=== PATIENT | male | born 1955 | race Caucasian/White ===

== ENCOUNTER 2017-03-05 20:32 | Emergency (ER) | payer MEDICAID ==
[2017-03-05] MEDS ORDERED: OXYMETAZOLINE 30 ML NASAL SPRAY ONE (20:51)
[2017-03-05] MEDS ORDERED: SILVER NITRATE APPLICATOR 1 APPL TP ONE (20:51)
[2017-03-05] MEDS ORDERED: COCAINE HCL 4% 4 ML BTL TP ONE ×2 (20:58→22:32)
[2017-03-05] MEDS ORDERED: CEPHALEXIN 500 MG CAP PO ONE (21:41)
--- NOTE | 2017-03-05 22:16 | EDPHY ---
H & P Time Seen by Provider: 03/05/17 20:54 HPI/ROS: HPI Nosebleed. 61-year-old male by private vehicle. This patient is on Coumadin. He reports spontaneous bleeding from his left nasal canal since 7:00 p.m.. Not resolving. No history of trauma. Denies any other associated signs or symptoms. No other aggravating or alleviating factors. ROS: Constitutional: No fever, no chills. No weakness. Eyes: No discharge. No changes in vision. ENT: No sore throat. As above. Respiratory: No cough. No shortness of breath. Cardiac: No chest pain, no palpitations. Gastrointestinal: No abdominal pain, no vomiting, no diarrhea. Genitourinary: No hematuria. No dysuria or increased frequency with urination. Musculoskeletal: No back pain. No neck pain. No myalgias or arthralgias. Skin: No rashes. Neurological: No headache. No focal weakness or altered sensation. Past medical history: AL x5, CABG, stents, hernia, neck injury. On Coumadin. Social history: Here by himself. He has a daughter who is a family practice physician. No alcohol. No smoking. Physical Exam: General Appearance: Alert, anxious. This patient is responding to questions appropriately and in full sentences. This patient appears well-hydrated and well-nourished. Eyes: Pupils equal and round no pallor or injection. No lid edema, erythema or injection. ENT, Mouth: Mucous membranes are moist. Blood in the posterior pharynx. The pharyngeal tissues are unremarkable. No edema or swelling. No asymmetry suggestive of abscess. No erythema or exudates. Brisk bleeding from the left nasal canal. Please see procedure note below for details. Respiratory: There are no retractions, lungs are clear to auscultation with good air movement bilaterally. Cardiovascular: Regular rate and rhythm. No murmur. Neurological: Motor sensory function is grossly intact. Cranial nerves are normal. Gait is normal. Skin: Warm and dry, no rashes. Musculoskeletal: Neck is supple and nontender. Extremities are symmetrical. All joints range without pain or impingement. Psychiatric: No agitation. No depression. Database: EKG: Imaging: Procedures: Procedure: Epistaxis control. After verbal consent was obtained, the patient was anesthetized with pledgets soaked in 4% cocaine. The anterior epistaxis was identified. The patient was treated with chemical cautery which failed, a 4.5 cm anterior nasal balloon was placed. Excellent hemostasis was achieved. Following the procedure the patient was re-examined and the bleeding was well controlled. The patient tolerated the procedure well. The procedure was performed by myself. Emergency department course: Vital signs reviewed. Procedure as above. Patient started on Keflex in the emergency department. I spoke with his daughter who is a family practice physician. Plan will be to have him follow up with ENT in 3 days for removal of the nasal balloon. Prescription for Keflex given to the patient. Return to emergency department precautions were reviewed with him. All of his questions were answered. He was discharged in good condition. Differential Diagnosis: The differential diagnosis on this patient includes but is not limited to anterior epistaxis. Posterior epistaxis, nasal foreign body, nasal trauma unlikely. This represents a partial list of diagnoses considered. These considerations are based on history, physical exam, past history, reassessment and diagnostic testing. Smoking Status: Never smoked Constitutional: Initial Vital Signs Temperature (C) 36.6 C 03/05/17 20:35 Heart Rate 70 03/05/17 20:35 Respiratory Rate 20 03/05/17 20:35 Blood Pressure 156/86 H 03/05/17 20:35 O2 Sat (%) 97 03/05/17 20:35 O2 Delivery Mode Room Air Allergies/Adverse Reactions: No Known Allergies Allergy (Verified 03/05/17 20:37) Home Medications: Medication Instructions Recorded Warfarin Sodium 11/08/14 Cephalexin [Keflex (*)] 500 mg PO Q6 5 Days cap 03/05/17 Medical Decision Making - Data Points Medications Given: Discontinued Medications Cephalexin HCl (Keflex) 500 mg PO EDNOW ONE PRN Reason: Protocol Stop: 03/05/17 21:42 Last Admin: 03/05/17 22:25 Dose: 500 mg Cocaine HCl (Cocaine Hcl) 1 mariam TP EDNOW ONE Stop: 03/05/17 22:33 Last Admin: 03/05/17 22:33 Dose: 1 mariam Oxymetazoline HCl (Afrin Nasal [place]) 2 sprays EACHNARE EDNOW ONE Stop: 03/05/17 22:33 Last Admin: 03/05/17 22:34 Dose: 2 spray Departure - Departure Disposition: Home, Routine, Self-Care Clinical Impression: Epistaxis, Left-sided nosebleed Condition: Good Instructions: Nosebleed (ED) Additional Instructions: Read and follow provided instructions. Follow-up with with Dr. Basil Taavres or 1 of his partners with the ENT service for re-evaluation. If the nasal balloon is bothering you significantly , you can see him or 1 of his partners tomorrow to have it removed and possibly have your bleeding site cauterized if it is still bleeding. Otherwise, the nasal balloon is to remain in place for 3 days and then removed. Take medication as prescribed. Return to the emergency department for return of bleeding, difficulty breathing or other serious concerns. Referrals: Basil Tavares MD [Medical Doctor] - As per Instructions Prescriptions: Cephalexin [Keflex (*)] 500 mg PO Q6 5 Days cap
[2017-03-05 22:31] VITALS: BP 113/75; PULSE 66; RESP 18; TEMP 98.1; O2SAT 94
[2017-03-05] MEDS ORDERED: OXYMETAZOLINE 30 ML NASAL SPRAY EACHNARE ONE (22:32)
== END 2017-03-05 22:44 | disposition home or self-care (01) ==
PROC: 2Y41X5Z Packing of Nasal Region using Packing Material (ICD-10-PCS; principal; 2017-03-05)
DX: R04.0 Epistaxis (principal); Z79.01 Long term (current) use of anticoagulants; Z95.1 Presence of aortocoronary bypass graft

== ENCOUNTER → 2018-01-20 | Outpatient (CLI) | payer MEDICAID | LOC: FIMAGING 07:17 | PROVIDERS: ATTEND Internal Medicine | DX: R06.09 Other forms of dyspnea (principal); I25.10 Atherosclerotic heart disease of native coronary artery without angina pectoris ==

== ENCOUNTER 2018-03-16 08:02 | Inpatient (IN) | payer MEDICAID ==
[2018-03-16] MEDS ORDERED: ASPIRIN 81 MG CHEWABLE TAB PO ONE (08:22)
[2018-03-16 08:36] LABS: PLATELET COUNT 187 10^3/uL (150-400)
--- NOTE | 2018-03-16 08:46 | EDPHY ---
H & P Stated Complaint: L sided CP this morning; +card disease; feels SOB Time Seen by Provider: 03/16/18 08:31 HPI/ROS: CHIEF COMPLAINT: Chest pain HISTORY OF PRESENT ILLNESS: 62-year-old male with CAD, status post CABG (2010) presents with chest pain. He awoke with a burning sensation in his chest at 0300. The burning sensation is moderate and associated with shortness of breath. Symptoms lasted 5 hr and have now resolved. He took aspirin and Plavix this morning. No alleviating or aggravating factors. Similar to prior anginal symptoms. No dizziness or diaphoresis. REVIEW OF SYSTEMS: complete 10 point ROS reviewed and is negative except for the noted elements in the HPI - Personal History Current Tetanus Diphtheria and Acellular Pertussis (TDAP): Yes - Medical/Surgical History Hx Asthma: No Hx Chronic Respiratory Disease: No Hx Diabetes: No Hx Cardiac Disease: Yes Hx Renal Disease: No Hx Cirrhosis: No Hx Alcoholism: No Hx HIV/AIDS: No Hx Splenectomy or Spleen Trauma: No Other PMH: PMH: hx ID x5, CABG and stents x4, hernia and neck injury - Social History Smoking Status: Never smoked - Physical Exam Exam: General Appearance: Alert, pleasant Eyes: Pupils equal and round, no conjunctival pallor or injection ENT, Mouth: Mucous membranes moist Neck: Normal inspection Respiratory: Lungs are clear to auscultation Cardiovascular: Regular rate and rhythm Gastrointestinal: Abdomen is soft and nontender Neurological: A&O, nonfocal exam Skin: Warm and dry, no rash Extremities: bilateral pedal edema, left greater than right Psychiatric: Mood and affect normal Constitutional: Initial Vital Signs Temperature (C) 36.5 C 03/16/18 08:05 Heart Rate 66 03/16/18 08:05 Respiratory Rate 18 03/16/18 08:05 Blood Pressure 155/66 H 03/16/18 08:05 O2 Sat (%) 97 03/16/18 08:05 O2 Delivery Mode Room Air Allergies/Adverse Reactions: No Known Allergies Allergy (Verified 03/16/18 08:02) Home Medications: Medication Instructions Recorded Albuterol [Proventil Inhaler HFA 1 - 2 puffs IH Q4H PRN 03/16/18 (*)] Aspirin [Aspirin 81mg (*)] 81 mg PO DAILY PRN 03/16/18 Atorvastatin Calcium [Lipitor 20 20 mg PO DAILY 03/16/18 mg (*)] Bisoprolol Fumarate [Zebeta (*)] 5 mg PO HS 03/16/18 Clopidogrel Bisulfate [Clopidogrel] 75 mg PO DAILY 03/16/18 Enalapril Maleate [Vasotec 10 MG 10 mg PO HS 03/16/18 (*)] Fluticasone/Salmeter 250/50Mcg 1 puffs IH BID 03/16/18 [Advair 250/50 (*)] Herbals/Supplements -Info Only 1 ea PO DAILY 03/16/18 Multivitamins [Multivitamin (*)] 1 each PO DAILY 03/16/18 Medical Decision Making - Diagnostics EKG Interpretation: EKG interpreted by me reveals normal sinus rhythm, rate 67, inferior Q-waves, ST segment elevation in lead V2. Interpretation: Abnormal EKG Imaging Results: Chest x-ray: NAD Imaging: I viewed and interpreted images myself ED Course/Re-evaluation: This patient with known coronary artery disease presents with typical chest pain. Stat EKG reveals no evidence of ischemia or dysrhythmia. Aspirin given. Initial troponin is 0. Patient asymptomatic throughout his emergency department stay. High risk for ACS. He will need admission for further cardiac evaluation. The hospitalist service was consulted for admission. Differential Diagnosis: Differential diagnosis includes though it is not limited to pneumonia, pneumothorax, pulmonary embolism, aortic dissection, pericarditis, acute coronary syndrome. - Data Points Laboratory Results: Laboratory Results 03/17/18 03:10 03/17/18 03:10 Medications Given: Acetaminophen (Tylenol) 650 mg PO QID PRN PRN Reason: Pain, Mild Able to Take PO Stop: 09/12/18 12:12 Last Admin: 03/16/18 21:04 Dose: 650 mg Albuterol (Proventil Inhaler) 1 - 2 puffs IH Q4H PRN PRN Reason: Shortness of Breath Stop: 09/12/18 10:56 Last Admin: 03/16/18 15:44 Dose: 2 puffs Bisoprolol Fumarate (Zebeta) 5 mg PO HS [facility] Stop: 09/12/18 20:59 Last Admin: 03/16/18 21:07 Dose: Not Given Clopidogrel Bisulfate (Plavix) 75 mg PO DAILY [facility] Stop: 09/13/18 08:59 Last Admin: 03/17/18 11:00 Dose: 75 mg Enalapril Maleate (Vasotec) 10 mg PO HS [facility] Stop: 09/12/18 20:59 Last Admin: 03/16/18 21:07 Dose: Not Given Multivitamins (Tab-A-Yudelka) 1 each PO DAILY [facility] Stop: 09/13/18 08:59 Last Admin: 03/17/18 11:00 Dose: 1 each Discontinued Medications Aspirin (Aspirin) 243 mg PO EDNOW ONE Stop: 03/16/18 08:23 Last Admin: 03/16/18 08:26 Dose: 243 mg Aspirin Buffered (Aspirin Ec) 325 mg PO ONCALL ONE Stop: 03/17/18 06:01 Last Admin: 03/17/18 14:07 Dose: Not Given Atorvastatin Calcium (Lipitor) 20 mg PO [facility] Stop: 09/12/18 20:59 Last Admin: 03/16/18 21:24 Dose: 20 mg Diazepam (Valium) 5 mg PO ONCALL ONE Stop: 03/17/18 06:01 Last Admin: 03/17/18 14:07 Dose: Not Given Diphenhydramine HCl (Benadryl) 25 mg PO ONCALL ONE Stop: 03/17/18 06:01 Last Admin: 03/17/18 14:07 Dose: Not Given Famotidine (Pepcid) 20 mg PO ONCALL ONE Stop: 03/17/18 06:01 Last Admin: 03/17/18 14:07 Dose: Not Given Sodium Chloride (Ns) 1,000 mls @ 150 mls/hr IV ONCALL ONE Stop: 03/17/18 12:39 Last Admin: 03/17/18 14:08 Dose: Not Given Nitroglycerin (Nitro-Bid 2%) 1 inch TP Q6HRS [facility] Stop: 09/12/18 12:29 Last Admin: 03/17/18 14:07 Dose: Not Given Point of Care Test Results: Chemistry 03/16/18 09:21 POC Troponin I 0.00 ng/mL ng/mL (0.00-0.08) Departure - Departure Disposition: [facility] Clinical Impression: Chest pain Qualifiers: Chest pain type: precordial pain Qualified Code(s): R07.2 - Precordial pain Condition: Fair
[2018-03-16] MEDS ORDERED: ASPIRIN 81 MG CHEWABLE TAB PO PRN (10:57)
--- NOTE | 2018-03-16 11:50 | GHP ---
DATE OF ADMISSION: 03/16/2018 CHIEF COMPLAINT: Chest pain. HISTORY OF PRESENT ILLNESS: This is a 62-year-old man with a history of a CABG as well as additional cardiac stents, CABG was in 2010, who awoke around 3:00 a.m. this morning with squeezing chest pain. It was associated with some shortness of breath. He took some water with lemon juice as well as hi s aspirin and Plavix early, which did not relieve the pain. The pain did resolve without any other r eal intervention after couple of hours. He called his daughter, and she recommended that he report t o the emergency department which he did. He normally exercises; however, on his walk yesterday, it w as longer than normal but he felt extremely fatigued afterwards. He see Dr. Nolasco in clinic and had a stress test about a month and a half ago which showed an old infarct but nothing new. His ejectio n fraction was 46%. He notes slight worsening lower extremity edema. PAST MEDICAL/SURGICAL HISTORY: 1. Coronary artery disease, status post CABG as well as stents. 2. Hernia repair. 3. Neck pain. MEDICATIONS: Please see medication reconciliation. ALLERGIES: No known drug allergies. SOCIAL HISTORY: Does not drink or smoke. FAMILY HISTORY: Reviewed and noncontributory. REVIEW OF SYSTEMS: A 10-point review of systems is conducted and is negative except per HPI. PHYSICAL EXAM: VITAL SIGNS: Blood pressure 137/77, heart rate 65, respiration rate 20, saturating a t 92% on room air. Temperature is 36.9. GENERAL: The patient is a very pleasant man who is resting comfortably. No acute distress. HEENT: Shows him to be normocephalic, atraumatic. CARDIOVASCULAR : Regular rate and rhythm. No murmurs, rubs, or gallops. He has trace to 1+ bilateral symmetric lo wer extremity edema. PULMONARY: Lungs clear to auscultation bilaterally. He is in no respiratory d istress. ABDOMEN: Soft, nontender, nondistended. SKIN: No rash. : No [place]. NEUROLOGIC: Chary ws him to be alert and oriented x3. He is moving all extremities. PSYCHIATRIC: Normal mood and aff ect. LABORATORY DATA: CBC is normal. D-dimer is 0.4. Basic metabolic panel is normal. BNP is 351. DATA: 1. Discussed with Dr. Thomas, who will plan on catheterization tomorrow. 2. ECG, which I personally viewed and interpreted, shows old anterior infarct. It is not significan tly changed from his prior. 3. Chest x-ray, which I personally reviewed and interpreted, shows clear lungs. He has sternotomy w ires. IMPRESSION AND PLAN: Chest pain in a patient who is status post coronary artery bypass grafting as w ell as multiple stents: He had a recent stress test, which did not show any significant changes from prior. We will plan to place him on telemetry, admit him to [facility], trend his troponins. I have di scussed with Dr. Thomas, who will plan on cardiac catheterization tomorrow morning. He will be n.p.o. after midnight. He has received aspirin. We will continue his other cardiac medications including aspirin, Plavix, bisoprolol and Lipitor. This is a high-risk diagnosis. Fortunately, he is hemodyna mically stable currently. /[id number]/MODL
[2018-03-16] MEDS ORDERED: TEMAZEPAM 15 MG CAP PO PRN (12:13)
[2018-03-16] MEDS ORDERED: ACETAMINOPHEN 325 MG TAB PO PRN (12:13)
[2018-03-16] MEDS ORDERED: NITROGLYCERIN 0.4 MG BTL SL PRN (12:13)
--- NOTE | 2018-03-16 12:13 | SOAPPROG ---
[facility] Progress Note Assessment/Plan: Assessment: Cardiology consultation performed and dictated. 62 y/o man with CAD s/p CABG x 4V and MV repair in 01/25, PAF, HTN, and hyperlipidemia who has had CP and dizziness for last month or two. Echo 02/06/18 showed LVEF 52%, moderate diastolic dysfunction, trivial AI, MV s/p surgical annular ring with mild-moderate MR, trivial TR and estimated PAS 36mmg. Lexiscan cardiolite 01/24/18 showed LVEF 46% with no ischemia. His ecg is consistent with old anterior IA with and possible LV aneurysm or could be new ischemia. His first troponin is negative. REC: 1)add Nitropaste 1" q6hrs as still some non-specific CP and dizziness 2)rest of meds without changes. 3)serial serum troponin q4hrs x 2 more 4)NPO after midnight for cardiac cath and coronary and bypass angiography tomorrow. R/B/A discussed with pt and he wishes to proceed. 03/16/18 12:08 Objective: Vital Signs Temp Pulse Resp BP Pulse Ox 36.9 C 65 20 137/77 H 92 03/16/18 10:50 03/16/18 10:50 03/16/18 10:50 03/16/18 10:50 03/16/18 10:50 ICD10 Worksheet Patient Problems: Problems Problem Status Onset Chest pain Acute
[2018-03-16] MEDS: NITROGLYCERIN 2% 1 GM PACKET TP SCH ×3 (13:43→23:30)
--- NOTE | 2018-03-16 13:51 | GCON ---
CARDIOLOGY CONSULT DATE OF CONSULTATION: 03/16/2018 REASON FOR CONSULTATION: Evaluate chest pain and dizziness in a gentleman with previous bypass surge ry. HISTORY OF PRESENT ILLNESS: I was asked by Dr. Nando Curiel to consult for the above reasons. T he patient is a 62-year-old gentleman with the following cardiac history. He had multiple coronary s tents and then eventually got a CABG x4 vessels and mitral valve repair in January of 2015. He has been having recurrent chest pain and dizziness for the last 6 weeks. An echo done 6 weeks ago demon strated an LVEF of 52% with moderate diastolic dysfunction and [id number] recurrent mitral regu rgitation with trivial aortic insufficiency and trivial tricuspid insufficiency with an estimated pul monary artery systolic pressure of 36 mmHg. A Lexiscan Cardiolite stress test in January 24, 2018, demonstrated an LVEF of 46% with no ischemia. He presented to the emergency room this morning with recurrent chest pain and dizziness. It has many of the features he reports of his previous angina. He denies palpitations or syncope. He is more short of breath than normal. His 1st troponin is nega tive, but his EKG is abnormal. Language communication is difficult. However, he describes mild on a nd off pressures on both sides of his chest. PAST MEDICAL HISTORY: Coronary artery disease, paroxysmal atrial fibrillation, hypertension, hyperli pidemia, and cervical spine arthritis. PAST SURGICAL HISTORY: CABG and mitral valve repair in January of 2015, 4 vessels. MEDICATIONS: Aspirin 81 mg per day, atorvastatin 20 mg per day, bisoprolol 5 mg q.h.s., Plavix 75 mg per day, Vasotec 10 mg q.h.s. ALLERGIES: No known drug allergies. SOCIAL HISTORY: The patient does not smoke or use excessive alcohol intake. FAMILY HISTORY: Positive for premature coronary artery disease. REVIEW OF SYSTEMS: The patient reports no recent fevers, chills, hemoptysis, or purulent sputum prod uction. He has no GI bleed symptoms such as hematemesis, melena, or bright red blood per rectum. Re st of 10-point review of systems is negative. PHYSICAL EXAM: VITAL SIGNS: Pulse 65 and regular, blood pressure 137/77, respirations 18, weight 82 .2 kg. GENERAL: A normal-appearing gentleman with atypical 1/10 chest pain and not in respiratory d istress. EYES: Pupils equal and reactive to light. ENT: Oral mucosa with no cyanosis. NECK: Jug ular venous pressure to 7 cm. Carotid pulses 2+ bilaterally with no obvious bruits. No thyromegaly noted. No nuchal rigidity. LUNGS: Clear to auscultation bilaterally without rales, rhonchi, or whe ezing. HEART: Normal PMI. Regular rate and rhythm with 1/6 nonradiating systolic murmur with no S3 or rub heard. ABDOMEN: Soft and nontender. No guarding or rebound. No ascites noted. EXTREMITIES : 2+ peripheral pulses including femoral and pedal pulses. No edema noted. MUSCULOSKELETAL: No sc oliosis. NEURO: Normal affect and mood. SKIN: No bleeding or cyanosis. 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 LABS: White count 5.6, hematocrit 43, platelets 187,000, MCV 90. D-dimer negative. Sodium 138, pot assium 4.5, chloride 104, bicarb 25, BUN 23, creatinine 1.0, glucose 98. Troponin negative. NT proB [employer] level 351. IMPRESSION: A 62-year-old gentleman with coronary artery disease status post coronary artery bypass graft x4 vessels and mitral valve repair in January of 2018 with recurrent chest pain and dizziness with some features consistent with his previous angina. He does have an abnormal EKG with some ST e levation. However, his pain is relatively atypical and his 1st troponin is negative. I do think we should repeat coronary angiography to exclude new obstructive coronary artery disease this hospitaliz ation. PLAN: 1. Will add nitroglycerin paste 1 inch q.6 hours now in hopes of making him pain-free. 2. Rest of medications without change. 3. Would get cardiac troponins q.4 hours x2 more sets. 4. Will make n.p.o. after midnight and do a cardiac catheterization tomorrow morning with coronary a nd bypass angiography, and if clinically needed, coronary stenting. The risks, benefits, and alterna tives to the cardiac cath were discussed with the patient, and he wishes to proceed with a cath in e morning. /[id number]/MODL
--- NOTE | 2018-03-16 14:35 | CPEKG ---
Test Reason : OPEN Blood Pressure : / mmHG Vent. Rate : 067 BPM Atrial Rate : 067 BPM P-R Int : 206 ms QRS Dur : 086 ms QT Int : 418 ms P-R-T Axes : 060 054 073 degrees QTc Int : 442 ms Sinus rhythm Probable left atrial enlargement Abnormal inferior Q waves Anterior infarct, old Confirmed by Angelic Holloway ([id number]) on 03/16/2018 2:35:00 PM Referred By: Confirmed By:Angelic Holloway
[2018-03-16] MEDS: ALBUTEROL 60 PUFFS/8 GM MDI IH PRN (15:44)
[2018-03-16] MEDS ORDERED: ATORVASTATIN CALCIUM 20 MG TAB PO SCH (21:00)
[2018-03-16] MEDS: BISOPROLOL FUMARATE 5 MG TAB PO SCH (21:07)
[2018-03-16] MEDS: ENALAPRIL MALEATE 10 MG TAB PO SCH (21:07)
[2018-03-17 04:25] LABS: PLATELET COUNT 170 10^3/uL (150-400)
[2018-03-17 04:32] LABS: INR 1.09 (0.83-1.16); PROTIME(PATIENT) 14.3 SEC (12.0-15.0)
[2018-03-17] MEDS ORDERED: DIAZEPAM 5 MG TAB PO ONE (06:00)
[2018-03-17] MEDS ORDERED: NS 1,000 ML IV ONE (06:00)
[2018-03-17] MEDS ORDERED: FAMOTIDINE 20 MG TAB PO ONE (06:00)
[2018-03-17] MEDS ORDERED: ASPIRIN EC 325 MG TAB PO ONE (06:00)
[2018-03-17] MEDS ORDERED: diphenhydrAMINE 25 MG CAP PO ONE (06:00)
[2018-03-17] MEDS ORDERED: LIDOCAINE 1% 300 MG/30 ML SDV ONE (10:38)
[2018-03-17] MEDS ORDERED: MIDAZOLAM 2 MG/2 ML VIAL ONE ×2 (10:38→12:10)
[2018-03-17] MEDS ORDERED: IOPAMIDOL (ISOVUE-370) 150 ML BTL IV ONE (10:38)
[2018-03-17] MEDS ORDERED: fentaNYL 100 MCG/2 ML INJ ONE (10:38)
[2018-03-17] MEDS: CLOPIDOGREL BISULFATE 75 MG TAB PO SCH (11:00)
[2018-03-17] MEDS: MULTIVITAMINS 1 EACH TAB PO SCH (11:00)
--- NOTE | 2018-03-17 11:00 | PDPROPOC ---
Sedation Plan of Care Sedation Plan of Care: vital signs stable, mental status noted, patient educated of risks, benefits, alternatives, patient can tolerate sedation ASA Classification: ASA 2 Planned drugs: fentanyl, midazolam Mallampati Score: Class 2 Mallampati Reference Image: Patient passed 3-3-2 rule?: Yes
[2018-03-17] MEDS ORDERED: BIVALIRUDIN 250 MG/5 ML VIAL IV ONE (11:58)
[2018-03-17] MEDS ORDERED: ATROPINE SULFATE 1 MG/10 ML SYR IVP PRN (12:48)
[2018-03-17] MEDS ORDERED: ONDANSETRON 4 MG/2 ML VIAL IVP PRN (12:48)
[2018-03-17] MEDS: NITROGLYCERIN 2% 1 GM PACKET TP SCH (14:07)
--- NOTE | 2018-03-17 15:03 | ASMTCMCOM ---
CM Note CM Note Notes: 03/17/2018 Case Management Note Reviewed case with RN. Pt admitted for chest pain workup. There are no anticipated case management d/c needs identified d/t pt age, independence with ADL's prior to admission and marital status. There are no therapy evals ordered at this time. Case Management d/c poc: anticipating independent with follow up as directed. Case Management available if needs change. Date Signed: 03/17/2018 02:37 PM Electronically Signed By:Lilly Figueroa RN
--- NOTE | 2018-03-17 16:51 | HOSPPROG ---
Hospitalist Progress Note Assessment/Plan: 62M with CAD s/p CABG and PCI in past presents with UA, s/p PCI to [place] RCA. # CAD s/p PCI to [place] RCA today - cont asa/statin/lipitor - follow on tele overnight Subjective: s/p cath with PCI; feels much better, no SOB or CP Objective: Vital Signs Temp Pulse Resp BP Pulse Ox 36.6 C 51 L 16 132/65 H 95 03/17/18 13:56 03/17/18 14:55 03/17/18 14:55 03/17/18 14:55 03/17/18 14:55 Laboratory Results 03/17/18 03:10 03/17/18 03:10 03/16/18 03/17/18 03/18/18 05:59 05:59 05:59 Intake Total 985 Output Total 1025 Balance -40 PT 14.3 SEC (12.0-15.0) 03/17/18 03:10 INR 1.09 (0.83-1.16) 03/17/18 03:10 tele personally reviewed high risk - Physical Exam Constitutional: no apparent distress, appears nourished Cardiovascular: regular rate and rhythym, no murmur, rub, or gallop Respiratory: no respiratory distress, no rales or rhonchi, clear to auscultation Gastrointestinal: soft, non-tender abdomen, no palpable masses, No guarding, No rebound, No distension ICD10 Worksheet Patient Problems: Problems Problem Status Onset Chest pain Acute
--- NOTE | 2018-03-17 17:28 | PDMN ---
Medical Necessity Medical necessity: MCG M89 CP: 62 yo w/ CP, abnormal EKG w/ some ST elevation per cardiology consult, similar to previous angina s/sx, cardiac cath scheduled in am. Pt requires another MN for ongoing tele monitoring, NPO status and prep for cath. Hx 4 vessel CABG w/ mitral valve repair 2014, multi stents, afib, HTN , hyperlipidemia. Change to IP status per MD order 02/14/18 @164
[2018-03-17] MEDS: ALBUTEROL 60 PUFFS/8 GM MDI IH PRN (20:07)
[2018-03-17] MEDS: FLUTICASONE/SALMETER 250/50MCG DISKUS IH SCH (20:09)
[2018-03-17] MEDS ORDERED: ATORVASTATIN CALCIUM 20 MG TAB PO SCH (21:00)
[2018-03-17] MEDS: BISOPROLOL FUMARATE 5 MG TAB PO SCH (21:17)
[2018-03-17] MEDS: ENALAPRIL MALEATE 10 MG TAB PO SCH (21:21)
--- NOTE | 2018-03-17 23:56 | CPIP ---
DATE OF PROCEDURE: 03/17/2018 PROCEDURE: 1. Coronary angiography. 2. Bypass graft angiography. 3. Left ventricular end-diastolic pressure. 4. Ascending aortography number. 5. Stenting of right coronary artery with Xience drug-eluting stent. INDICATION: 1. Known coronary artery disease. 2. Acute coronary syndrome. ACCESS: Patient was prepped and draped in sterile fashion. 1% lidocaine was used to anesthetize the right inguinal region. A 6-Greek introducer sheath was placed selectively into the right common fe moral artery via modified Seldinger technique. CORONARY ANGIOGRAPHY: A 6-Greek JL4 was advanced to the left main coronary artery and images obtain ed. The left main coronary artery bifurcated into an LAD and circumflex coronary arteries. The dist al left main appeared to have a 40% to 50% stenosis present. The left anterior descending coronary a rtery was previously stented in the proximal mid segments. The previously placed stents were widely patent with mild in-stent restenosis. The prominent diagonal artery appeared to be flush occluded an d was being filled by a bypass graft. The circumflex coronary artery is a relatively small vessel. The circumflex coronary artery gave rise to 2 OM branches, 1 of the OM branches being filled by a byp ass graft. A 6-Greek JR4 was advanced to the right coronary artery and images obtained. The right coronary artery was dominant. The right coronary artery had a stent in the proximal segment. The pr eviously placed stent was widely patent with no evidence of in-stent restenosis. In the mid vessel t here is a single discrete 80% to 85% stenosis present. BYPASS GRAFT ANGIOGRAPHY: The 6-Greek JR4 was used to engage the saphenous vein graft to OM artery. This graft was widely patent with no evidence of significant stenosis. The 6-Greek JR4 was used t o engage the left subclavian artery. The 6-Greek JR4 was then exchanged for an WILLARD catheter. The I MA catheter was used to engage the PALOMO to diagonal graft. The PALOMO to diagonal graft was widely pat ent with no evidence of significant stenosis. ASCENDING AORTOGRAPHY: A 6-Greek pigtail catheter was placed in the ascending aorta and position ve rified by angiography. Images were obtained via power injection through the [employer] system. Ascendin g aortography demonstrated a saphenous vein graft to OM artery as well as a tolowa dee-ni' right coronary art gil. No other grafts could be seen coming off the ascending aorta. A 6-Greek JR4 was used to engag e the right subclavian artery and nonselective imaging of the MADDIE artery was obtained. The MADDIE art gil appeared to be use as a graft, but was atretic with no significant flow. Left ventricular end-di astolic pressure 6-Greek pigtail catheter was advanced into the left ventricle and pressure obtained . Left ventricular end-diastolic pressure was 19 mmHg. PERCUTANEOUS CORONARY INTERVENTION OF THE RIGHT CORONARY ARTERY: A 6-Greek JR4 was advanced to the right coronary artery and images obtained. Angiography confirmed the presence of high-grade disease involving the mid vessel. A Luge wire was placed in the distal vessel and position verified by angio graphy. A 3.5 x 18 Xience drug-eluting stent was placed across the lesion and deployed. Followup an giography demonstrated incomplete stent expansion. A 4.0 x 8 noncompliant balloon was used to post d ilate the distal portion of the stent. Followup angiography demonstrated XIOMARA-3 flow. No residual s tenosis. COMPLICATIONS: None. CONCLUSIONS: 1. Left main and 3-vessel coronary artery disease. 2. Patent left anterior descending stents with mild in-stent restenosis. 3. Patent left internal mammary artery to diagonal graft. 4. Patent saphenous vein graft to obtuse marginal. 5. 85% stenosis in the mid right coronary artery status post successful percutaneous coronary interv ention using a Xience drug-eluting stent. /[id number]/MODL
[2018-03-18 07:45] VITALS: BP 121/66
--- NOTE | 2018-03-18 09:30 | SOAPPROG ---
SO Progress Note Assessment/Plan: 1. CAD - Pt presented with an ACS and negative troponin. He was taken to the cardiac catheterization laboratory for risk stratification. He was found to have an 85 % stenosis in the creek RCA. The bypass graft to the RCA was occluded. Pt was treated with PCI of the RCA. He denies further episodes and dyspnea and chest pain. --> Continue asa, plavix, bisoprolol, enalapril, and atorvastatin --> F/U Dr. Nolasco on 03/24/18. 2. HTN - Well controlled. Continue current therapy 3. Hyperlipidemia - LDL = 65 on atorvastatin 20 mg daily. Continue current therapy. Subjective: chest pain and dyspnea improved No orthopnea or PND No access site complaints. Objective: Vital Signs Temp Pulse Resp BP Pulse Ox 36.6 C 59 L 18 121/66 H 95 03/18/18 07:44 03/18/18 07:44 03/18/18 07:44 03/18/18 07:44 03/18/18 07:44 03/17/18 03/18/18 03/19/18 05:59 05:59 05:59 Intake Total 420 Balance 420 PT 14.3 SEC (12.0-15.0) 03/17/18 03:10 INR 1.09 (0.83-1.16) 03/17/18 03:10 Physical Exam - Physical Exam General Appearance: alert, no apparent distress Respiratory: lungs clear Cardiac/Chest: regular rate, rhythm Abdomen: non-tender, soft Extremities: other (No hematoma, small echymosis. ) Neuro/Psych: alert, oriented x 3 ICD10 Worksheet Patient Problems: Problems Problem Status Onset Chest pain Acute
[2018-03-18] MEDS: ALBUTEROL 60 PUFFS/8 GM MDI IH PRN (09:33)
[2018-03-18] MEDS: FLUTICASONE/SALMETER 250/50MCG DISKUS IH SCH (09:34)
--- NOTE | 2018-03-18 09:56 | ASDISCHSUM ---
Discharge Information Plan Status:Home with No Needs Medically Cleared to Leave:03/17/2018 Discharge Date:03/17/2018 CM D/C Disposition:Home, Routine, Self-Care ADT D/C Disposition:Home, Routine, Self-Care Projected Discharge Date:03/17/2018 Transportation at D/C:Family Discharge Delay Reason: Follow-Up Date:03/17/2018 Discharge Slot: Final Diagnosis: Placement Information Patient Contact Information Contact Name:JAGUAR Relationship: Address:[address] [facility] Work Phone: City:[place] Alternate Phone: [facility]/Zip Code:[place] [address] Email: Financial Information Financial Class:Medicaid Primary Plan Desc:[employer] [place] Primary Plan Number:[id number] Secondary Plan Desc: Secondary Plan Number: Assessment Information LACE LACE Length of stay for Answers: Less than 1 day current admission Acuity / Level of Answers: Yes Care: Did the patient have an inpatient admission? Comorbidities - select Answers: Coronary Artery Disease all that apply Previous myocardial infarction # of Emergency department Answers: 1-2 visits in the last 6 months Score: 7 Date Signed: 03/18/2018 09:54 AM Electronically Signed By:Lilly Figueroa RN [facility] CM Progress Note CM Note CM Note Notes: 03/17/2018 Case Management Note Reviewed case with RN. Pt admitted for chest pain workup. There are no anticipated case management d/c needs identified d/t pt age, independence with ADL's prior to admission and marital status. There are no therapy evals ordered at this time. Case Management d/c poc: anticipating independent with follow up as directed. Case Management available if needs change. Date Signed: 03/17/2018 02:37 PM Electronically Signed By:Lilly Figueroa RN Case Management Discharge Plan Note Case Management Discharge Discharge Order Complete? Answers: Yes Patient to Obtain Answers: via Family Medications Discharge Comments Notes: 03/18/2018 Case Management Note Pt discharging independent with follow up as directed. Date Signed: 03/18/2018 09:55 AM Electronically Signed By:Lilly Figueroa RN Intervention Information
[2018-03-18] MEDS: CLOPIDOGREL BISULFATE 75 MG TAB PO SCH (09:57)
[2018-03-18] MEDS: MULTIVITAMINS 1 EACH TAB PO SCH (09:57)
--- NOTE | 2018-03-18 10:25 | GDS ---
DISCHARGE DIAGNOSES: 1. CAD: stent to RCA. 2. Hypertension. 3. Neck pain. PROCEDURES: Cardiac catheterization: Stent to right coronary artery. HISTORY OF PRESENT ILLNESS: A 62-year-old male with coronary artery disease status post CABG in 2010 and additional stents. He awoke at 3 am with squeezing chest pain that was associated with shortness of breath. He took some warm water with lemon juice and aspirin and Plavix. It did not relieve the pain. It did resolve without any other interventions after a couple hours. HOSPITAL COURSE BY PROBLEM: 1. Acute chest pain: PCI with stent to RCA. Aspirin, Plavix, statin, and beta fredi. Appt with Dr. Nolasco 03/24/2018. 2. History of hernia repair. hold off elective procedures for now with new stent. DISPOSITION: Patient is stable for discharge home. MEDICATIONS: Refilled his home medications. PHYSICAL EXAMINATION: VITAL SIGNS: Today, temperature 36.6, blood pressure 121 /66, heart rate in the 50s to 60s, respirations 18, 95% on room air. GENERAL: He is well appearing in no acute distress. HEENT: PERRLA. Moist mucous membranes. CV: Regular rate and rhythm. LUNGS: Clear. ABDOMEN: Soft, nontender, and nondistended. : No Rankin. MUSCULOSKELETAL: Catheterization site without hematoma. Good pulse. NEURO: 2 through 12 intact. PSYCH: Alert and oriented x3. Interview and exam were done with a video brass plater. /[id number]/MODL MTDD
--- NOTE | 2018-03-18 12:27 | CPEKG ---
Test Reason : OPEN Blood Pressure : / mmHG Vent. Rate : 060 BPM Atrial Rate : 060 BPM P-R Int : 220 ms QRS Dur : 099 ms QT Int : 436 ms P-R-T Axes : 061 068 075 degrees QTc Int : 436 ms Sinus rhythm Ventricular premature complex Borderline prolonged UT interval Probable left atrial enlargement Anteroseptal infarct, old Confirmed by Gera Ledesma ([id number]) on 03/18/2018 12:27:31 PM Referred By: Confirmed By:Gera Ledesma
--- NOTE | 2018-03-19 22:17 | CPEKG ---
Test Reason : OPEN Blood Pressure : / mmHG Vent. Rate : 067 BPM Atrial Rate : 067 BPM P-R Int : 209 ms QRS Dur : 087 ms QT Int : 403 ms P-R-T Axes : 062 061 052 degrees QTc Int : 426 ms Sinus rhythm Probable left atrial enlargement Anterior infarct Confirmed by Tommy Pitts ([id number]) on 03/19/2018 10:16:50 PM Referred By: Confirmed By:Tommy Pitts
--- NOTE | 2018-03-19 23:15 | CPEKG ---
Test Reason : OPEN Blood Pressure : / mmHG Vent. Rate : 055 BPM Atrial Rate : 055 BPM P-R Int : 236 ms QRS Dur : 087 ms QT Int : 458 ms P-R-T Axes : 068 069 069 degrees QTc Int : 438 ms Sinus rhythm Prolonged WA interval Cannot rule out prior anterior infarct Artifact Confirmed by Tommy Pitts ([id number]) on 03/19/2018 11:14:24 PM Referred By: Confirmed By:Tommy Pitts
== END 2018-03-18 11:50 | disposition home or self-care (01) | DRG 175 ==
LOC: F2W 10:40 → OBSVTOIN 03-17 16:42
PROVIDERS: ADMIT Student in an Organized Health Care Education/Training Program; ATTEND Student in an Organized Health Care Education/Training Program
PROC: 4A023N7 Measurement of Cardiac Sampling and Pressure, Left Heart, Percutaneous Approach (ICD-10-PCS; principal; 2018-03-17)
PROC: B2121ZZ Fluoroscopy of Single Coronary Artery Bypass Graft using Low Osmolar Contrast (ICD-10-PCS; principal; 2018-03-17)
PROC: B2181ZZ Fluoroscopy of Left Internal Mammary Bypass Graft using Low Osmolar Contrast (ICD-10-PCS; principal; 2018-03-17)
PROC: B2151ZZ Fluoroscopy of Left Heart using Low Osmolar Contrast (ICD-10-PCS; principal; 2018-03-17)
PROC: 027034Z Dilation of Coronary Artery, One Artery with Drug-eluting Intraluminal Device, Percutaneous Approach (ICD-10-PCS; principal; 2018-03-17)
DX: I25.119 Atherosclerotic heart disease of native coronary artery with unspecified angina pectoris (principal); I10 Essential (primary) hypertension; I48.0 Paroxysmal atrial fibrillation; E78.5 Hyperlipidemia, unspecified; Z95.1 Presence of aortocoronary bypass graft; Z95.5 Presence of coronary angioplasty implant and graft; I25.2 Old myocardial infarction
CPT/HCPCS: 84484-PO; C1725; C1760; C1769; C1874; C1887; C9600; G0378; J0583; J1644; J2250; J3010; Q9967

== ENCOUNTER 2018-10-17 10:23 | Emergency (ER) | payer MEDICAID | END 2018-10-17 12:26 | disposition home or self-care (01) ==